=== PATIENT | male | born 1980 | race Caucasian/White ===

== ENCOUNTER 2017-01-30 22:26 | Emergency (ER) | payer BC ==
[2017-01-30 22:42] VITALS: BP 143/100
--- NOTE | 2017-01-30 23:09 | EDM.PDOC ---
ED HPI GENERAL MEDICAL PROBLEM - General Chief Complaint: Skin Complaint Stated Complaint: POSS CYST ON BOTTOM Time Seen by Provider: 01/30/17 22:39 Source of Information: Reports: Patient, RN Notes Reviewed History Limitations: Reports: No Limitations - History of Present Illness INITIAL COMMENTS - FREE TEXT/NARRATIVE: The patient states that he has had a "cyst" on his right buttock for the past 2 days. It only hurts if he moves. He began weeping about 2 and half hours ago. He states that he had a lesion in the same place on 09/16/2013. He was seen in an ED 3 times before seeing a surgeon, who then said that there was nothing that he could do. The lesion eventually healed on its own. The patient does not have a PCP. The patient also reports that he had a benign tumor of excised from his scalp on 01/21/2017, and was wondering if we could remove the suture. inner buttock Pain Score (Numeric/FACES): 6 - Related Data Allergies Allergy/AdvReac Type Severity Reaction Status Date / Time No Known Allergies Allergy Verified 01/30/17 22:42 Home Meds: Home Meds Ibuprofen 200 mg PO QID PRN 01/30/17 [History] Past Medical History - Past Surgical History Musculoskeletal Surgical History: Reports: ORIF (right hand) Dermatological Surgical History: Reports: Other (See Below) (Benign tumor excised from scalp 01/21/2017) Social & Family History - Family History Family Medical History: Noncontributory - Tobacco Use Smoking Status *Q: Former Smoker Years of Tobacco use: 10 Packs/Tins Daily: 0.2 - Caffeine Use Caffeine Use: Reports: Coffee, Tea - Alcohol Use Alcohol Use History: Yes Alcohol Use Frequency: Socially - Recreational Drug Use Recreational Drug Use: No - Living Situation & Occupation Living situation: Reports: (), Alone 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) ED ROS GENERAL - Review of Systems Review Of Systems: See Below Constitutional: Reports: No Symptoms HEENT: Reports: Other (viral URUI symptoms 2 weeks ago) Respiratory: Reports: No Symptoms Cardiovascular: Reports: No Symptoms Endocrine: Reports: No Symptoms GI/Abdominal: Reports: No Symptoms : Reports: No Symptoms Musculoskeletal: Reports: No Symptoms Skin: Reports: No Symptoms Neurological: Reports: No Symptoms Psychiatric: Reports: No Symptoms Hematologic/Lymphatic: Reports: No Symptoms Immunologic: Reports: No Symptoms ED EXAM, SKIN/RASH Exam: See Below Exam Limited By: No Limitations General Appearance: Alert, WD/WN, No Apparent Distress Head: Other (Well-healed approximately 3 cm linear laceration to the superior scalp with a single suture) Skin: Warm, Dry, Intact, Normal Color, No Rash, Other (Lesion to the right buttock along the cleft appears to be a vascular malformation. It is spontaneously draining a small amount of dark blood. Some blood clots were able to be expressed with squeezing. No pus. Minimal, if any, tenderness.) Course - Vital Signs Last Recorded V/S: Last Vital Signs Temp 36.4 C 01/30/17 22:35 Pulse 80 01/30/17 22:35 Resp 18 01/30/17 22:35 BP 143/100 H 01/30/17 22:35 Pulse Ox 99 01/30/17 22:35 - Re-Assessments/Exams Free Text/Narrative Re-Assessment/Exam: 01/30/17 23:08 The etiology of the patient's right buttock lesion is unclear. It appears to be a vascular malformation. I was able to express some blood clot, but there was no pus. It is minimally tender. The patient denies rectal pain or discomfort with defecation. For tonight purposes, I would recommend sitz baths , and I will refer him to Dr. Mayito Mendez for followup. The patient asked me to remove a single suture in his scalp, placed last Saturday , 01/21/2017 when he had a benign tumor removed from his scalp. Departure - Departure Time of Disposition: 23:38 Disposition: Home, Self-Care 01 Condition: good Clinical Impression: Vascular malformation - Discharge Information Referrals: PCP,None [Primary Care Provider] - Mayito Mendez MD [Physician] - Forms: ED Department Discharge Additional Instructions: You were seen in the emergency room for a bleeding lesion on your right inner buttock. You also asked to have a suture removed from your scalp. The cause of the bleeding lesion is unclear. It may be some form of a vascular malformation. We are recommending you perform sitz baths 2-3 times per day, presently. Followup with the Surgeon Dr. Mayito Mendez at the next available appointment. If any other problems, please do not hesitate to return to the ER.
== END 2017-01-30 23:44 | disposition home or self-care (01) ==
LOC: JD.ED 22:26
DX: L98.8 Other specified disorders of the skin and subcutaneous tissue (principal); Z87.891 Personal history of nicotine dependence; Z98.890 Other specified postprocedural states
CPT/HCPCS: 99282; 99283